=== PATIENT | female | born 1995 | race Caucasian/White ===

== ENCOUNTER 2016-12-19 10:50 | Emergency (ER) | payer OTHER ==
[~2016-12-19] VITALS: Ht 152.4 cm; Wt 49.5 kg
[2016-12-19 10:58] VITALS: BP 110/76; PULSE 80; RESP 16; TEMP 97.9; O2SAT 100
--- NOTE | 2016-12-19 11:22 | PD ---
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 Patient states that she started having low abdominal pelvic cramping since last night. Patient states the pain is worse this morning. Patient started having heavy vaginal bleeding this morning. Patient denies any headache. Patient denies any chest pain or shortness of breath. Patient denies vomiting or diarrhea. Patient denies any dysuria or frequency. Patient has history of recurrent pelvic pain and heavy vaginal bleeding in the past. Patient was seen by workforce planning analyst in the past. Patient was advised ibuprofen for pain. Mom reported no pelvic ultrasound done so far. Mom states that patient has severe reflux problem with ibuprofen in the past. PFSH Past Medical History Medical History: Denies Significant Hx Diminished Hearing: No Immunizations Current: Yes Tetanus Vaccination: < 5 Years Influenza Vaccination: No ?: Not LMP: 12/19/2016 Past Surgical History Surgical History: No Previous Surgery Social History Alcohol Use: No Tobacco Use: No Substance Use: No Allergies-Medications (Allergen,Severity, Reaction): Coded Allergies: No Known Allergies (Unverified , 12/19/16) Reported Meds & Prescriptions Reported Meds & Active Scripts Active No Active Prescriptions or Reported Medications Review of Systems General / Constitutional: No: Fever Eyes: No: Visual changes HENT: No: Headaches Cardiovascular: No: Chest Pain or Discomfort Respiratory: No: Shortness of Breath Gastrointestinal: No: Abdominal Pain Genitourinary: Positive: Pelvic Pain, Vaginal Bleeding, No: Dysuria Musculoskeletal: No: Pain Skin: No Rash Neurologic: No: Weakness Psychiatric: No: Depression Endocrine: No: Polydipsia Hematologic/Lymphatic: No: Easy Bruising Physical Exam Narrative GENERAL: Well-nourished, well-developed patient. SKIN: Focused skin assessment warm/dry. HEAD: Normocephalic. EYES: No scleral icterus. No injection or drainage. NECK: Supple, trachea midline. No JVD or lymphadenopathy. CARDIOVASCULAR: Regular rate and rhythm without murmurs, gallops, or rubs. RESPIRATORY: Breath sounds equal bilaterally. No accessory muscle use. GASTROINTESTINAL: Abdomen soft, non-tender, nondistended. MUSCULOSKELETAL: No cyanosis, or edema. BACK: Nontender without obvious deformity. No CVA tenderness. Neurologic exam normal. PATROL SUPERVISOR exam: Done by my bankruptcy assistant. Data Data Last Documented VS Vital Signs Date Time Temp Pulse Resp B/P Pulse Ox O2 Delivery O2 Flow Rate FiO2 12/19/16 10:58 97.9 80 16 110/76 100 Orders Ed Urine Pregnancytest Poc (12/19/16 11:13) Complete Blood Count With Diff (12/19/16 11:35) Beta Hcg (Quant/Titer) (12/19/16 11:35) Iv Access Insert/Monitor (12/19/16 11:35) Us Pelvis Comp Supervisor [employer]rication/Non-Preg (12/19/16 12:02) Labs Laboratory Tests Test 12/19/16 12:00 White Blood Count 9.1 TH/MM3 Red Blood Count 4.02 MIL/MM3 Hemoglobin 12.1 GM/DL Hematocrit 35.5 % Mean Corpuscular Volume 88.3 FL Mean Corpuscular Hemoglobin 30.2 PG Mean Corpuscular Hemoglobin 34.2 % Concent Red Cell Distribution Width 12.2 % Platelet Count 294 TH/MM3 Mean Platelet Volume 7.7 FL Neutrophils (%) (Auto) 85.5 % Lymphocytes (%) (Auto) 8.2 % Monocytes (%) (Auto) 5.2 % Eosinophils (%) (Auto) 0.6 % Basophils (%) (Auto) 0.5 % Neutrophils # (Auto) 7.7 TH/MM3 Lymphocytes # (Auto) 0.8 TH/MM3 Monocytes # (Auto) 0.5 TH/MM3 Eosinophils # (Auto) 0.1 TH/MM3 Basophils # (Auto) 0.0 TH/MM3 CBC Comment DIFF FINAL Differential Comment Human Chorionic Gonadotropin, LESS THAN 1 Quant MIU/ML MDM Medical Decision Making Medical Screen Exam Complete: Yes Emergency Medical Condition: Yes Interpretation(s) 1434 PM. CBC within normal limit. Beta hCG negative. Differential Diagnosis Differential diagnosis including dysmenorrhea, threatened AB, incomplete AB, completed AB, ectopic . Narrative Course 21-year-old female with pelvic pain and vaginal bleeding. There is a delay in pelvic ultrasound. Parents decided to see personal physician for outpatient ultrasound. Diagnosis Primary Impression: Dysmenorrhea Patient Instructions: General Instructions Additional Instructions: Tramadol as needed for pain. Follow-up with personal physician and workforce planning analyst. Return if persistent problem or worse. Med/Other Pt SpecificInfo: Prescription(s) given Scripts Tramadol 50 Mg Tab50 Mg PO Q6H PRN (PAIN) #30 TAB Ref 0 Prov:Danny Torres MD 12/19/16 Disposition: 01 DISCHARGE HOME Condition: Stable Danny Torres MD December 19, 2016 11:22
--- NOTE | 2016-12-19 11:45 | PD ---
Physical Exam Time Seen by Provider: 11:30 Narrative Pelvic exam: Moderate amount of blood in the vaginal vault, without clots. Cervix not visualized. No cervical motion tenderness .No adnexal mass or tenderness. Data Data Last Documented VS Vital Signs Date Time Temp Pulse Resp B/P Pulse Ox O2 Delivery O2 Flow Rate FiO2 12/19/16 10:58 97.9 80 16 110/76 100 Orders Ed Urine Pregnancytest Poc (12/19/16 11:13) Complete Blood Count With Diff (12/19/16 11:35) Beta Hcg (Quant/Titer) (12/19/16 11:35) Iv Access Insert/Monitor (12/19/16 11:35) MDM Supervised Visit with CARMINA: Yes Scripts No Active Prescriptions or Reported Meds Vernell Araujo December 19, 2016 11:45
[2016-12-19 12:12] LABS: AUTOMATED NEUTROPHIL # 7.7 TH/MM3 (1.8-7.7); BASOPHIL % 0.5 % (0.0-2.0); EOSINOPHIL # 0.1 TH/MM3 (0-0.4); EOSINOPHIL % 0.6 % (0.0-4.0); HEMATOCRIT 35.5 % (35.0-46.0); HEMO FLAGS DIFF FINAL; LYMPH % 8.2 % (9.0-44.0); LYMPHOCYTE # 0.8 TH/MM3 (1.0-4.8); MEAN CELL VOLUME 88.3 FL (80.0-100.0); MEAN CORPUSCULAR HEMOGLOBIN 30.2 PG (27.0-34.0); MEAN CORPUSCULAR HGB CONC 34.2 % (32.0-36.0); MONO % 5.2 % (0.0-8.0); NEUT % 85.5 % (16.0-70.0); PLATELET COUNT 294 TH/MM3 (150-450); RED BLOOD COUNT 4.02 MIL/MM3 (4.00-5.30); RED CELL DISTRIBUTION WIDTH 12.2 % (11.6-17.2); WHITE BLOOD COUNT 9.1 TH/MM3 (4.0-11.0)
[2016-12-19 12:30] LABS: BETA HCG QUANT LESS THAN 1 MIU/ML (0-5)
[2016-12-19] MEDS ORDERED: TRAM50TA PO (14:34)
== END 2016-12-19 14:44 | disposition home or self-care (01) ==
LOC: PHED 10:50
DX: N94.6 Dysmenorrhea, unspecified (principal)
CPT/HCPCS: 84702; 85025; 99283